=== PATIENT | male | born 1950 | race African-American/Black ===

== ENCOUNTER 2019-01-03 16:19 | Inpatient (IN) | payer MEDICARE, OTHER ==
[~2019-01-03] VITALS: Ht 172.7 cm; Wt 72.4 kg
[~2019-01-03 16:19] MED LIST: ALTACE 2.5MG T2.5 MG PO; ASPIRIN E.C. 8181 MG PO; COREG 6.256.25 MG/TA PO; LASIX 20MG TABL20 MG PO; NITROSTAT0.4 MG/TAB SL
[2019-01-03 17:52] LABS: BASO % 0.4 % (0.0-2.0); EOS # 0.1 (0.0-0.7); EOS % 1.8 % (0-4.0); GRAN # 2.4 (1.4-6.5); HEMATOCRIT 47.3 % (42.0-52.0); HEMOGLOBIN 15.6 g/dl (13.5-18.0); LYMPH # 1.9 (1.2-3.4); LYMPH % 39.4 % (20.0-51.0); MEAN CELL VOLUME 89 fl (80.0-100.0); MEAN CORPUSCULAR HEMOGLOBIN 30 pg (27.0-31.0); MEAN CORPUSCULAR HGB CONC 33 g/dl (33.0-37.0); MEAN PLATELET VOLUME 10.7 fl (7.4-10.4); MONO # 0.5 (0.1-0.6); MONO % 9.2 % (1.7-9.3); PLATELET COUNT 204 K/mm3 (130-400); RED BLOOD COUNT 5.29 M/mm3 (4.20-5.60); REDCELL DISTRIBUTION WIDTH-CV 15.4 % (11.5-14.5)
[2019-01-03 17:57] LABS: INR 1.3 (0.8-3.0)
[2019-01-03 17:59] LABS: PARTIAL THROMBOPLASTIN TIME 35.6 SECONDS (26.0-37.0)
[2019-01-03 18:10] LABS: ALBUMIN 3.5 gm/dL (3.5-5.0); BILIRUBIN,TOTAL 1.2 mg/dL (0.0-1.0); CALCIUM 8.7 mg/dL (8.4-10.2); CREATININE, serum 1.43 (0.66-1.25); POTASSIUM 3.6 mmol/L (3.4-5.0); TOTAL PROTEIN 6.8 gm/dL (6.4-8.2)
[2019-01-03 18:22] LABS: TROPONIN-I 0.024 ng/mL (0.000-0.035)
[2019-01-03 20:40] VITALS: BP 147/104; PULSE 103; TEMP 97.8
--- NOTE | 2019-01-03 21:00 | NUR ---
Pt arrived from ER via wheelchair. No distress noted. Admission completed. Medications reviewed. Respirations even and unlabored. Pt complains of some BEASLEY. Spo2 97% on O2 @ 2L via NC. Lungs clear. BS+. 1+ edema noted to BLE. Pedal pulses equal-2+. Neuro assessment WNL. Pt A&O x3. Pt reports that CONE MARKER took his discharge paperwork from his previous admission to enter the medications into the computer and the paperwork was not returned. Pt states that all the information for his followup appointments was listed on the paperwork and he does not have that information anywhere else. ER called and they are unable to locate the paperwork. Pt voiding clear yellow urine into urinal without difficulty. No further needs noted at this time.
--- NOTE | 2019-01-03 21:30 | NUR ---
Hilary LIANG at bedside.
[2019-01-03 22:17] LABS: PHOSPHOROUS 4.5 mg/dL (2.5-4.5)
[2019-01-03 22:30] LABS: TROPONIN-I 0.026 ng/mL (0.000-0.035)
[2019-01-03 22:48] LABS: THYROID STIMULATING HORMONE 4.21 uIU/mL (0.465-4.680)
--- NOTE | 2019-01-03 23:11 | NUR ---
Pt returned from CT after CT of head. HS home medications administered. No furhter needs noted.
[2019-01-03 23:44] VITALS: BP 155/98; PULSE 90; TEMP 97.7
[2019-01-03 23:46] VITALS: BP 155/98; PULSE 90; TEMP 97.7
[2019-01-04] VITALS (7 sets, daily range): BP systolic 108–148; BP diastolic 67–107; PULSE 81–98; TEMP 97.4–97.8
--- NOTE | 2019-01-04 | NUR ---
UA collected per order. Pt voiding clear yellow urine. No needs noted at this time.
[2019-01-04 00:07] LABS: COLLECTION METHOD CLEAN CATCH
[2019-01-04 00:17] LABS: PH 5 (5-8); SQUAMOUS EPITHELIAL None Seen /hpf; URINE APPEARANCE Clear; URINE BACTERIA None Seen /hpf; URINE BILIRUBIN Negative (NEGATIVE); URINE BLOOD 1+ (NEGATIVE); URINE COLOR Yellow; URINE GLUCOSE Negative (NEGATIVE); URINE KETONE Negative (NEGATIVE); URINE LEUKOCYTE ESTERASE Negative (NEGATIVE); URINE NITRATE Negative (NEGATIVE); URINE PROTEIN(semi-quant) 1+ (NEGATIVE); URINE RBC 0-2 /hpf; URINE UROBILINOGEN Negative (NEGATIVE)
--- NOTE | 2019-01-04 04:38 | NUR ---
Consult called to Dr. Shaw.
--- NOTE | 2019-01-04 06:10 | NUR ---
medical office technology instructor Arvind called to alert of the patient having a 6 second run of VT vs. Afib with RVR sustained in the 160s. Pt reports feeling funny, but no chest pain. VSS. BP 142/92, HR 82. No distress noted.
[2019-01-04 06:24] LABS: EOS # 0.1 (0.0-0.7); EOS % 2.2 % (0-4.0); GRAN # 1.6 (1.4-6.5); GRAN % 40.8 % (42.2-75.2); HEMATOCRIT 44.9 % (42.0-52.0); HEMOGLOBIN 14.8 g/dl (13.5-18.0); LYMPH # 1.8 (1.2-3.4); LYMPH % 44.4 % (20.0-51.0); MEAN CELL VOLUME 89 fl (80.0-100.0); MEAN CORPUSCULAR HEMOGLOBIN 29 pg (27.0-31.0); MEAN CORPUSCULAR HGB CONC 33 g/dl (33.0-37.0); MEAN PLATELET VOLUME 10.5 fl (7.4-10.4); MONO # 0.5 (0.1-0.6); MONO % 11.4 % (1.7-9.3); PLATELET COUNT 210 K/mm3 (130-400); RED BLOOD COUNT 5.03 M/mm3 (4.20-5.60); REDCELL DISTRIBUTION WIDTH-CV 15.3 % (11.5-14.5)
[2019-01-04 06:26] LABS: CALCIUM 8.3 mg/dL (8.4-10.2); CHOLESTEROL RISK RATIO 3.8; CREATININE, serum 1.45 (0.66-1.25); POTASSIUM 3.3 mmol/L (3.4-5.0)
--- NOTE | 2019-01-04 06:30 | NUR ---
Dr. Brooks notified of consult and patients 6 second run of VT vs. Afib with RVR sustained in the 160s. Pt is SR now and EKG this AM showed SR. Orders received to keep patient NPO for now. Consult to Dr. Dodge also called.
--- NOTE | 2019-01-04 07:10 | NUR ---
Report given to Hernando TOVAR. Pt resting this AM. No needs noted at this time.
--- NOTE | 2019-01-04 07:30 | NUR ---
Pt AAOx4, call light in reach, states "I did not sleep at all last night". Lights dimmed and door closed per pt request.
--- NOTE | 2019-01-04 10:22 | NUR ---
Initial visit; Patient thanked Physical Design Engineer for looking in on him and wishing him well and offering God's blessings.
--- NOTE | 2019-01-04 14:21 | NUR ---
ZEB met with patient to discharge planning. Patient lives independently at home with his nephew. Patient does not have a PCP at this time but is interested in obtaining one. Patient does not have a preference on which PCP he is scheduled with. ZEB reported this to the community associate. Patient's preferred pharmacy is [facility] in [place]. Patient reports he does not have drug coverge through medicare and has trouble paying for meds. ZEB informed patient of [employer] for medication coupons. SW also reported that when he is discharged SW can provide coupons from [employer]. Patient also is interested in applying for Medicaid. ZEB contacted Chyna, financial counselor, and informed her of this. Patient does not use any DME or home health services. Patient also reports he has a DPOA-HC. SW will continue to follow as needed.
--- NOTE | 2019-01-04 21:00 | NUR ---
Patient in bed, denies pain. Is alert and oriented x4. Has SL to right forearm. Reports mild shortness of breath with activity. Has knee high Mike hose on bilateral lower legs, mild edema noted. Remains on fluid restriction.
[2019-01-05] VITALS (7 sets, daily range): BP systolic 96–134; BP diastolic 66–89; PULSE 75–89; TEMP 97.6–98.3
[2019-01-05 06:08] LABS: BASO % 0.5 % (0.0-2.0); EOS # 0.1 (0.0-0.7); EOS % 3.3 % (0-4.0); GRAN # 1.7 (1.4-6.5); GRAN % 39.4 % (42.2-75.2); HEMOGLOBIN 13.1 g/dl (13.5-18.0); LYMPH # 1.8 (1.2-3.4); LYMPH % 43.4 % (20.0-51.0); MEAN CELL VOLUME 89 fl (80.0-100.0); MEAN CORPUSCULAR HEMOGLOBIN 29 pg (27.0-31.0); MEAN CORPUSCULAR HGB CONC 33 g/dl (33.0-37.0); MEAN PLATELET VOLUME 10.4 fl (7.4-10.4); MONO # 0.6 (0.1-0.6); MONO % 13.2 % (1.7-9.3); PLATELET COUNT 193 K/mm3 (130-400); RED BLOOD COUNT 4.49 M/mm3 (4.20-5.60); REDCELL DISTRIBUTION WIDTH-CV 15.1 % (11.5-14.5)
[2019-01-05 06:26] LABS: CREATININE, serum 1.45 (0.66-1.25); MAGNESIUM 1.7 mg/dL (1.6-2.3); POTASSIUM 3.3 mmol/L (3.4-5.0)
--- NOTE | 2019-01-05 13:32 | NUR ---
SW attended clinical rounds. Patient will likely discharge home tomorrow. Patient reports he does not feel he need home health for medication management. When paitent is discharge, ZEB will provide a medication voucher to [facility].
--- NOTE | 2019-01-05 20:25 | NUR ---
Patient in bed, new IV started to left forearm with 20g insyte on first attempt. Takes HS meds at this time. Reports occasional shortness of breath and is wearing oxygen at this time. Lungs are clear throughout. Remains on fluid restriction.
--- NOTE | 2019-01-06 00:30 | NUR ---
Patient reports feeling short of breath. Oxygen on at 2l/NC, SaO2=98% p=80. Reports just laying in the bed and the feeling of shortness of breath just happened without any activity. Pt reports he felt his ICD "vibrate" x2. Telemetry reports no unusual occurrences noted on his monitor. Patient feeling better after VS and oxygen checked. Will monitor for changes.
[2019-01-06 04:30] VITALS: BP 115/80; PULSE 79; TEMP 97.4
--- NOTE | 2019-01-06 04:50 | NUR ---
Patient reports feeling better and was able to go back to sleep. VSS. No concerns offered at this time.
[2019-01-06 07:22] LABS: BASO % 0.5 % (0.0-2.0); EOS # 0.1 (0.0-0.7); EOS % 2.2 % (0-4.0); GRAN # 1.7 (1.4-6.5); GRAN % 39.9 % (42.2-75.2); HEMATOCRIT 39.8 % (42.0-52.0); HEMOGLOBIN 12.9 g/dl (13.5-18.0); LYMPH # 1.8 (1.2-3.4); LYMPH % 44.1 % (20.0-51.0); MEAN CELL VOLUME 90 fl (80.0-100.0); MEAN CORPUSCULAR HEMOGLOBIN 29 pg (27.0-31.0); MEAN CORPUSCULAR HGB CONC 32 g/dl (33.0-37.0); MEAN PLATELET VOLUME 10.8 fl (7.4-10.4); MONO # 0.6 (0.1-0.6); MONO % 13.3 % (1.7-9.3); PLATELET COUNT 199 K/mm3 (130-400); RED BLOOD COUNT 4.41 M/mm3 (4.20-5.60); REDCELL DISTRIBUTION WIDTH-CV 15.1 % (11.5-14.5)
[2019-01-06 07:45] LABS: CALCIUM 8.1 mg/dL (8.4-10.2); CREATININE, serum 1.57 (0.66-1.25); MAGNESIUM 2.1 mg/dL (1.6-2.3); POTASSIUM 3.9 mmol/L (3.4-5.0)
--- NOTE | 2019-01-06 08:00 | NUR ---
Patient in bed resting. Alert and oriented x 3. Shift assessment complete. Denies pain at this time. Denies further needs at this time.
[2019-01-06 08:48] VITALS: BP 126/90; PULSE 82; TEMP 97.8
--- NOTE | 2019-01-06 09:20 | NUR ---
SW attended clinical rounds. Patient could discharge home today. SW will provide a med voucher at the time of discharge. It has also been recommended for patient to utilize home health services. Patient is agreeable to this. SW will follow up with patient about home health choice after he is seen by PT and OT.
[2019-01-06 11:16] LABS: INR 1.4 (0.8-3.0); PROTHROMBIN TIME 16.3 SECONDS (9.7-12.8)
--- NOTE | 2019-01-06 11:26 | NUR ---
Follow-up visit; Patient thanked Auto Brake Technician for looking in on him again offering God's blessings.
[2019-01-06] MEDS ORDERED: ELIQUIS 5MG PO (12:34)
[2019-01-06] MEDS ORDERED: FLOMAX 0.40.4 MG/CAP PO (12:34)
[2019-01-06] MEDS ORDERED: PACERONE400 MG PO (12:34)
[2019-01-06 12:35] VITALS: BP 96/69; PULSE 73; TEMP 97.7
[2019-01-06] MEDS ORDERED: COREG12.5 MG PO (12:54)
[2019-01-06] MEDS ORDERED: ALTACE 2.5MG T2.5 MG PO (12:55)
--- NOTE | 2019-01-06 12:57 | NUR ---
ZEB met with patient about home health choices. SW presented medicare.gov resource list for home health and patient choice [facility]. SW then presented IM to patient. He signed but did not request a copy. ZEB also reported that the medication vouvher will be given to the nurse and she will provide it when patient is discharged. ZEB will also fax prescriptions and voucher to [facility]. ZEB faxed referral to [facility] and will fax discharge orders once they're completed. Patient will discharge home today with [facility] for usp.
--- NOTE | 2019-01-06 13:16 | NUR ---
SPO2 ROOM AIR AT REST 97% PT WALKED WITH RT APPROX 300 FEET W/O COMPLAINT. YVON EXERCISE VERY WELL. SPO2 @ REST POST EXERCISE 94%
[2019-01-06] MEDS ORDERED: LASIX 40MG TABL40 MG PO (13:36)
[2019-01-06] MEDS ORDERED: IMDUR 60MG60 MG/TAB PO (14:31)
--- NOTE | 2019-01-06 15:45 | NUR ---
Dischage education provided to patient. Patient educated on discharge medications. Educated on low sodium diet and fluid restrictions. All questions answered. INT to left forarm discontinued, catheter tip intact. Denies pain or further needs at this time.
== END 2019-01-06 15:45 | disposition home health service (06) | DRG 291 ==
LOC: COL.ER 16:19 → SURG 19:03
PROVIDERS: Emergency Medicine; Nurse Practitioner Family; ADMIT Family Medicine
DX: I13.0 Hypertensive heart and chronic kidney disease with heart failure and stage 1 through stage 4 chronic kidney disease, or unspecified chronic kidney disease (principal); I50.23 Acute on chronic systolic (congestive) heart failure; J96.01 Acute respiratory failure with hypoxia; I63.511 Cerebral infarction due to unspecified occlusion or stenosis of right middle cerebral artery; N39.0 Urinary tract infection, site not specified; I31.3 Pericardial effusion (noninflammatory); I08.3 Combined rheumatic disorders of mitral, aortic and tricuspid valves; I48.91 Unspecified atrial fibrillation; E87.6 Hypokalemia; E83.42 Hypomagnesemia; N40.1 Benign prostatic hyperplasia with lower urinary tract symptoms; R39.11 Hesitancy of micturition; I25.10 Atherosclerotic heart disease of native coronary artery without angina pectoris; I42.9 Cardiomyopathy, unspecified; K40.90 Unilateral inguinal hernia, without obstruction or gangrene, not specified as recurrent; N18.3 Chronic kidney disease, stage 3 (moderate); Z95.810 Presence of automatic (implantable) cardiac defibrillator; Z79.82 Long term (current) use of aspirin; Z87.891 Personal history of nicotine dependence; Z91.14 Patient's other noncompliance with medication regimen
CPT/HCPCS: 99222-AI; 99232-AI; 99239; J1644; J1940; J3475

== ENCOUNTER → 2019-07-14 | Outpatient (CLI) | payer MEDICARE ==
[~2019-07-14] MED LIST changes: +COREG12.5 MG PO; +ELIQUIS 5MG PO; +FLOMAX 0.40.4 MG/CAP PO; +IMDUR 60MG60 MG/TAB PO; +LASIX 40MG TABL40 MG PO; +PACERONE400 MG PO
== END ==
LOC: COL.RAD 10:45
DX: M17.11 Unilateral primary osteoarthritis, right knee (principal); M79.646 Pain in unspecified finger(s)

== ENCOUNTER 2020-01-05 07:22 | Outpatient (CLI) | payer OTHER, MEDICARE ==
[~2020-01-05] VITALS: Ht 172.8 cm; Wt 77.6 kg
[2020-01-05] VITALS (7 sets, daily range): BP systolic 123–137; BP diastolic 86–101; PULSE 75–87; TEMP 97.3–97.6
[2020-01-05 08:39] LABS: HEMATOCRIT 45.6 % (42.0-52.0); HEMOGLOBIN 14.8 g/dl (13.5-18.0); MEAN CELL VOLUME 93 fl (80.0-100.0); MEAN CORPUSCULAR HEMOGLOBIN 30 pg (27.0-31.0); MEAN CORPUSCULAR HGB CONC 33 g/dl (33.0-37.0); MEAN PLATELET VOLUME 10.3 fl (7.4-10.4); PLATELET COUNT 202 K/mm3 (130-400); RED BLOOD COUNT 4.93 M/mm3 (4.20-5.60); REDCELL DISTRIBUTION WIDTH-CV 15.1 % (11.5-14.5)
[2020-01-05 08:54] LABS: INR 1.4 (0.8-3.0); PROTHROMBIN TIME 15.8 SECONDS (9.7-12.8)
[2020-01-05] MEDS ORDERED: COREG 25MG25 MG/TAB PO (09:00)
[2020-01-05 09:01] LABS: CREATININE, serum 1.69 (0.66-1.25); POTASSIUM 4.2 mmol/L (3.4-5.0)
--- NOTE | 2020-01-05 10:30 | NUR ---
spoke with Bonifacio Roe in Lab and informed him of the BNP lab add on. Bhupinder aware.
--- NOTE | 2020-01-05 11:30 | NUR ---
Discharge instructions reviewed with pt. Pt voiced understanding. Encouraged pt to take his medications as ordered and when he has about 10-15 tablets left to get his refills through the pharmacy. Pt aware. IV was discontinued with catheter tip intact, no phlebitis or infiltration. Pt was discharged via w/c to the care of friend in private vehicle with discharge instructions in hand.
== END 2020-01-05 12:00 | disposition home or self-care (01) ==
LOC: COL.RAD 07:22
PROVIDERS: Internal Medicine Cardiovascular Disease
DX: I42.9 Cardiomyopathy, unspecified (principal); I34.0 Nonrheumatic mitral (valve) insufficiency
CPT/HCPCS: J1940; J2704

== ENCOUNTER 2020-06-12 07:19 | Day surgery (SDC) | payer MEDICARE ==
[~2020-06-12] VITALS: Ht 172.7 cm; Wt 79.3 kg
[2020-06-12] VITALS (11 sets, daily range): BP systolic 135–175; BP diastolic 84–115; PULSE 70–87; TEMP 97.9
[~2020-06-12 07:19] MED LIST changes: +COREG 25MG25 MG/TAB PO
[2020-06-12 08:42] LABS: HEMATOCRIT 36.6 % (42.0-52.0); HEMOGLOBIN 12.4 g/dl (13.5-18.0); MEAN CELL VOLUME 88 fl (80.0-100.0); MEAN CORPUSCULAR HEMOGLOBIN 30 pg (27.0-31.0); MEAN CORPUSCULAR HGB CONC 34 g/dl (33.0-37.0); PLATELET COUNT 257 K/mm3 (130-400); RED BLOOD COUNT 4.18 M/mm3 (4.20-5.60); REDCELL DISTRIBUTION WIDTH-CV 13.2 % (11.5-14.5)
[2020-06-12 08:46] LABS: INR 1.1 (0.8-3.0); PROTHROMBIN TIME 12.6 SECONDS (9.7-12.8)
[2020-06-12 08:53] LABS: CALCIUM 8.6 mg/dL (8.4-10.2); CREATININE, serum 1.14 (0.66-1.25); POTASSIUM 3.8 mmol/L (3.4-5.0)
[2020-06-12] MEDS ORDERED: IMDUR 60MG60 MG/TAB PO (09:00)
[2020-06-12] MEDS ORDERED: NITROSTAT0.4 MG/TAB SL (09:00)
[2020-06-12] MEDS ORDERED: ALTACE 2.5MG T2.5 MG PO (09:01)
[2020-06-12] MEDS ORDERED: ALDACTONE 25MG25 M1 PO (09:01)
[2020-06-12] MEDS ORDERED: DEMADEX 20MG20 M1 PO (09:02)
[2020-06-12] MEDS ORDERED: LIPITOR 40MG TA40 MG PO (09:02)
[2020-06-12] MEDS ORDERED: ASPIRIN 81M81 MG/TA2 PO (09:03)
--- NOTE | 2020-06-12 09:40 | NUR ---
Pt to procedure.
--- NOTE | 2020-06-12 09:48 | NUR ---
SEE MERGE DOCUMENTATION FOR MEDICATION ADMINISRATION TIMES AND INTRA/POST PROCEDURE SEDATION ASSESSMENTS.
[2020-06-12] MEDS ORDERED: CEPHALEXIN500 M1 PO (10:46)
--- NOTE | 2020-06-12 13:59 | NUR ---
Discharge instructions given to pt.pt verbalizes understanding.INT removed,catheter tip intact.Pt escorted out via wheelchair.
== END 2020-06-12 14:34 | disposition home or self-care (01) ==
LOC: COL.CAR 07:19
PROVIDERS: Internal Medicine Cardiovascular Disease
DX: Z45.02 Encounter for adjustment and management of automatic implantable cardiac defibrillator (principal); I42.8 Other cardiomyopathies; I10 Essential (primary) hypertension; I08.3 Combined rheumatic disorders of mitral, aortic and tricuspid valves; I25.10 Atherosclerotic heart disease of native coronary artery without angina pectoris; Z95.1 Presence of aortocoronary bypass graft
CPT/HCPCS: J0690; J2250; J3010; J7030

== ENCOUNTER 2022-03-31 18:20 | Emergency (ER) | payer MEDICARE ==
[~2022-03-31] VITALS: Ht 172.7 cm; Wt 78.2 kg
[~2022-03-31 18:20] MED LIST changes: +ALDACTONE 25MG25 M1 PO; +ASPIRIN 81M81 MG/TA2 PO; +CEPHALEXIN500 M1 PO; +DEMADEX 20MG20 M1 PO; +LIPITOR 40MG TA40 MG PO
[2022-03-31 18:24] VITALS: TEMP 98.1
[2022-03-31 18:55] LABS: HEMOGLOBIN 11.2 g/dl (13.5-18.0); MEAN CELL VOLUME 95 fl (80.0-100.0); MEAN CORPUSCULAR HEMOGLOBIN 29 pg (27-31); MEAN CORPUSCULAR HGB CONC 31 g/dl (33.0-37.0); MEAN PLATELET VOLUME 10.1 fl (7.4-10.4); PLATELET COUNT 386 K/mm3 (130-400); RED BLOOD COUNT 3.87 M/mm3 (4.20-5.60); REDCELL DISTRIBUTION WIDTH-CV 13.2 % (11.5-14.5)
[2022-03-31 18:56] LABS: HEMATOCRIT 36.7 % (42.0-52.0)
[2022-03-31 19:07] LABS: ALBUMIN 2.8 gm/dL (3.4-4.8); BILIRUBIN,TOTAL 0.8 mg/dL (0.2-1.2); CREATININE, serum 2.41 mg/dL (0.72-1.25); POTASSIUM 3.9 mmol/L (3.5-4.5); TOTAL PROTEIN 8.5 gm/dL (6.2-8.1)
[2022-03-31 19:12] LABS: TROPONIN-I 0.011 ng/mL (0.00-0.033)
[2022-03-31 19:34] LABS: COLLECTION METHOD CLEAN CATCH
[2022-03-31 19:39] LABS: LYMPHOCYTE 8 % (20.0-51.0); NEUTROPHILS 89 % (42.0-75.2); PLATELET ESTIMATE NORMAL (NORMAL)
[2022-03-31 19:49] LABS: MUCOUS Present (NOT PRESENT); PH 5 (5-8); SQUAMOUS EPITHELIAL 0-2 /hpf (0-10); URINE APPEARANCE Hazy (CLEAR/HAZY); URINE BACTERIA Rare /hpf (NONE SEEN); URINE BLOOD Negative (NEGATIVE); URINE COLOR Yellow (YELLOW); URINE GLUCOSE Negative (NEGATIVE); URINE KETONE Negative (NEGATIVE); URINE NITRATE Negative (NEGATIVE); URINE PROTEIN(semi-quant) 2+ (NEGATIVE); URINE RBC 0-2 /hpf (0-2); URINE UROBILINOGEN >=4.0 (NEGATIVE)
[2022-03-31 20:30] VITALS: BP 139/93; PULSE 100
== END 2022-03-31 20:35 | disposition home or self-care (01) ==
LOC: COL.ER 18:20
PROVIDERS: Nurse Practitioner
DX: J18.9 Pneumonia, unspecified organism (principal); Z28.310 Unvaccinated for COVID-19
CPT/HCPCS: J7030